=== PATIENT | female | born 1995 | race African-American/Black ===

== ENCOUNTER 2021-12-09 10:57 | Emergency (ER) | payer BC ==
[~2021-12-09] VITALS: Ht 167.6 cm; Wt 131.5 kg
--- NOTE | 2021-12-09 11:10 | NUR ---
bibs w/ c/o cough, nasal congestion since december 06, states, "not getting any better", per pt. to er bed 6.
--- NOTE | 2021-12-09 11:40 | NUR ---
DR LU AT BEDSIDE W/ PT
[2021-12-09] MEDS ORDERED: ACETAMINOPHEN ES 500 MG TABLET ONE (11:50)
[2021-12-09] MEDS ORDERED: BENZONATATE 100 MG CAPSULE PO PRN (12:00)
[2021-12-09] MEDS ORDERED: ACETAMINOPHEN ES 500 MG TABLET PO ONE (12:00)
--- NOTE | 2021-12-09 12:01 | NUR ---
PCR COVID AND INFLUENZA SWABS COLLECTED AND SENT TO LAB
--- NOTE | 2021-12-09 12:59 | NUR ---
FOLLOWED UP RESULT OF RAPID INFLUENZA TEST
[2021-12-09] MEDS ORDERED: BENZ-13 PO (13:25)
[2021-12-09] MEDS ORDERED: ACET-2605 PO (13:25)
--- NOTE | 2021-12-09 13:27 | NUR ---
md aware of rapid influenza result and patient's concern for z-pack prescription
--- NOTE | 2021-12-09 13:32 | NUR ---
Patient discharged to home in stable condition. Written and verbal after care instructions given; explained and provided teaching to patient that antibiotic use for viral infection is not recommended and may be more hamful than beneficial for condition. Patient verbalizes understanding of instruction.
[2021-12-09 13:34] VITALS: BP 137/90
== END 2021-12-09 13:39 | disposition home or self-care (01) ==
LOC: ER 10:57
DX: B34.9 Viral infection, unspecified (principal); Z20.822 Contact with and (suspected) exposure to COVID-19; Z86.711 Personal history of pulmonary embolism; K21.9 Gastro-esophageal reflux disease without esophagitis; M32.9 Systemic lupus erythematosus, unspecified
CPT/HCPCS: 99283; 87804; U0003; C9803